=== PATIENT | male | born 1985 | race Caucasian/White ===

== ENCOUNTER 2021-02-28 10:10 | Outpatient (CLI) | payer OTHER, SELFPAY ==
--- NOTE | ~2021-02-28 | MR_ITS ---
EXAMINATION: MR brain/brain stem wo/w con DATE: 02/28/2021 11:05 INDICATION: Multiple sclerosis. TECHNIQUE: Magnetic resonance imaging (MRI) of the brain and brainstem was performed without and with 14 mL MultiHance intravenous contrast. Sequences included sagittal and axial T1-weighted FLAIR, axia l T1-weighted FSE, axial diffusion-weighted FS EPI, sagittal T2-weighted FLAIR, axial T2*-weighted GR E, axial T2-weighted FLAIR Propeller, and axial T2-weighted Propeller. Postcontrast sequences include d axial, coronal, and sagittal T1-weighted FSE. Apparent diffusion coefficient (ADC) maps were create d. COMPARISON: Brain MRI 04/12/2012 FINDINGS: There are greater than 40 total lesions of increased T2-weighted signal intensity in the br ain. Of these lesions, many are periventricular, several are juxtacortical, and a few are infratentor ial. None of the lesions enhance. There is no intracranial hemorrhage or acute ischemic infarct. The paranasal sinuses are clear. The orbits are normal. The mastoid air cells are normal. IMPRESSION: 1. Worsened white matter disease, consistent with multiple sclerosis. Reviewed, dictated and finalized at location B.
[2021-02-28 10:41] LABS: Estimated Glomerular Filt Rate > 60
== END 2021-02-28 10:11 ==
PROVIDERS: PCP Internal Medicine; Visit Provider Psychiatry & Neurology Neurology
DX: G35 Multiple sclerosis (principal)
CPT/HCPCS: 70553; A9577

== ENCOUNTER 2023-05-20 11:33 | Emergency (ER) | payer OTHER, SELFPAY ==
--- NOTE | ~2023-05-20 | XR_ITS ---
EXAMINATION: XR ribs RT 2V w CXR 2V INDICATION: Chest pain TECHNIQUE: Frontal and lateral views of the chest and 3 views of the right ribs were obtained. COMPARISON: 07/23/2009 FINDINGS: The lungs are free of acute opacities. There is a questionable peripheral density seen post eriorly and inferiorly on the lateral view. No pleural effusion or pneumothorax. The cardiomediastina l silhouette is normal. No displaced rib fracture is identified. IMPRESSION: 1. Possible peripheral soft tissue density posteriorly and inferiorly in the lower thorax. Further ev aluation with CT of the chest is recommended. Reviewed, dictated and finalized at location B. IMPRESSION: 1. Possible peripheral soft tissue density posteriorly and inferiorly in the lo wer thorax. Further evaluation with CT of the chest is recommended.
[2023-05-20 11:52] VITALS: BP 132/92; PULSE 70; RESP 16; TEMP 37.2; O2SAT 100
--- NOTE | 2023-05-20 12:33 | ED.URI ---
HPI - URI/Sore Throat General Chief Complaint: Upper Respiratory Infection Stated Complaint: Chest Pain Time Seen by Provider: 05/20/23 12:33 Source: patient Mode of arrival: ambulatory Limitations: no limitations History of Present Illness HPI Narrative: 37-year-old male presents with complaint of right-sided chest and rib pain for the past several days. Reports that he had a cough for approximately 2 weeks. states that he coughed a few days ago and had sudden pain to right-sided chest. Is now resolved. Pain is worse with movement. denies shortness breath. Afebrile. All systems reviewed and negative except as noted above. Related Data Home Medications Medication Instructions Recorded Confirmed dimethyl fumarate 240 mg 240 mg PO DIRECTED 05/20/23 05/20/23 capsule,delayed release donepezil 23 mg tablet 23 mg PO DIRECTED 05/20/23 05/20/23 sildenafil 100 mg tablet 100 mg PO DAILY 05/20/23 05/20/23 trazodone 50 mg tablet 50 mg PO DIRECTED 05/20/23 05/20/23 Allergies Allergy/AdvReac Type Severity Reaction Status Date / Time topiramate [From Topamax] AdvReac Other Verified 05/20/23 12:07 Review of Systems Review of Systems: CONSTITUTIONAL: Denies fever, chills, or sweats. EYES: Denies visual changes, redness, or discharge. ENT: Denies rhinorrhea, congestion, sore throat, or otalgia. CARDIOVASCULAR: Denies chest pain, palpitations, or edema. RESPIRATORY: Denies cough or dyspnea. GASTROINTESTINAL: Denies abdominal pain, nausea, vomiting, or diarrhea. GENITOURINARY: Denies dysuria or hematuria. SKIN: Denies rash or itching. MUSCULOSKELETAL: Denies back pain, joint pain, or myalgia. Reports right-sided chest and rib pain. NEUROLOGIC: Denies headache, numbness, or weakness. PSYCHIATRIC: Denies anxiety or depression. All other systems reviewed are negative, except as documented in HPI. PMFSH Comments At time of signature, agree with nursing past medical, surgical, social and family history. There is no relevant family history pertinent to the presenting complaint. Exam Narrative: GENERAL: This is a well-nourished, well-developed patient, in no apparent distress. HEAD: normocephalic, atraumatic. EYES: PERRL. Sclera clear/white. Vision is grossly intact. EARS: External ears normal NOSE: External nose normal NECK: Neck supple, non-tender without lymphadenopathy, masses or thyromegaly. CARDIOVASCULAR: Regular rate and rhythm without murmurs, gallops, or rubs. RESPIRATORY: Clear to auscultation. Breath sounds equal bilaterally. No wheezes, rales, or rhonchi. SKIN: warm, Dry, intact with no suspicious lesions or rash, good texture and turgor. NEURO: awake, alert, and oriented to person, place and time. There were no obvious focal neurologic abnormalities. EXTREMITIES: No joint tenderness, effusion, or edema noted. BACK: Nontender without deformity. MUSCULOSKELETAL: ANTERIOR CHEST WALL TENDERNESS TO RIGHT SIDE JUST BELOW RIGHT BREAST. Course Course Level of Care: Express Care Visit Vital Signs Vital signs: Vital Signs Temperature 37.2 C 05/20/23 11:52 Pulse Rate 70 05/20/23 11:52 Respiratory Rate 16 05/20/23 11:52 Blood Pressure 132/92 H 05/20/23 11:52 Pulse Oximetry 100 05/20/23 11:52 Oxygen Delivery Room Air 05/20/23 11:52 Temperature 37.2 C 05/20/23 11:52 Pulse Rate 70 05/20/23 11:52 Respiratory Rate 16 05/20/23 11:52 Blood Pressure 132/92 H 05/20/23 11:52 Pulse Oximetry 100 05/20/23 11:52 Oxygen Delivery Room Air 05/20/23 11:52 Reviewed MDM - URI/Sore Throat MDM Narrative Medical decision making narrative: discussed x-ray results with patient. Negative for fracture. There is a soft tissue density noted by radiologist. Recommend patient follow-up with his primary care physician to request an outpatient CT scan to for liver out our evaluate this abnormality. Patient agrees with plan of care. Will treat patient today with
== END 2023-05-20 13:12 | disposition home or self-care (01) ==
PROVIDERS: Emergency Provider Nurse Practitioner Family; PCP Nurse Practitioner Family
DX: S29.011A Strain of muscle and tendon of front wall of thorax, initial encounter (principal); X58.XXXA Exposure to other specified factors, initial encounter; G35 Multiple sclerosis; F32.A Depression, unspecified
CPT/HCPCS: 71046; 71100; 99213; G0463